=== PATIENT | female | born 1935 | race Two or more races ===

== ENCOUNTER 2020-06-28 16:34 | Inpatient (IN) | payer MEDICARE, MEDICAID ==
[~2020-06-28] VITALS: Ht 160 cm; Wt 66.3 kg
[2020-06-28] MEDS ORDERED: SODIUM CHLORIDE 0.9% 1,000 ML IVB ONE (17:49)
[2020-06-28] MEDS ORDERED: ONDANSETRON HCL 4 MG/2 ML VIAL IV ONE (18:00)
[2020-06-28 18:05] LABS: Urine Bacteria MANY /hpf (None Seen); Urine Blood Negative /uL (Negative); Urine Hyaline Cast FEW /lpf (0 - 2); Urine Mucus FEW (None Seen); Urine Specific Gravity 1.028 (1.001-1.035); Urine WBC 14 /hpf (0 - 5)
[2020-06-28 18:06] LABS: Alanine Aminotransferase 22 U/L (13-56); Albumin 3.2 g/dL (3.4-5.0); Anion Gap 4 (5-15); Aspartate Aminotransferase 20 U/L (15-37); BUN/Creatinine Ratio 32.8; Blood Urea Nitrogen 21 mg/dL (7-18); Calcium 9.6 mg/dL (8.5-10.1); Carbon Dioxide 31 mmol/L (21-32); Chloride 99 mmol/L (98-107); GFR African American 113 mL/min; GFR Non-African American 94 mL/min; Glucose 120 mg/dL (74-106); Potassium 4.6 mmol/L (3.5-5.1); Sodium 134 mmol/L (136-145)
[2020-06-28 18:11] LABS: Alkaline Phosphatase 84 U/L (45-117); Bilirubin, Total 0.8 mg/dL (0.2-1.0); Total Protein 7.1 g/dL (6.4-8.2)
[2020-06-28 18:24] LABS: Magnesium 1.2 mg/dL (1.6-2.6)
[2020-06-28 18:25] LABS: Basophils # (auto) 0 10 ^3/uL (0-0.2); Basophils % (auto) 0.3 % (0.0-2.0); Eosinophils # (auto) 0.3 10 ^3/uL (0-0.8); Eosinophils % (auto) 1.8 % (0.0-7.0); Hematocrit 42.9 % (36.0-46.0); Hemoglobin 13.8 g/dL (12.2-16.2); Lymphocytes # (auto) 2.4 10 ^3/uL (0.4-5.4); Lymphocytes % (auto) 15.2 % (10.0-50.0); Mean Corpuscular Hemoglobin 28.5 pg (28.0-32.0); Mean Corpuscular Hgb Conc. 32.2 g/dL (32.0-36.0); Mean Corpuscular Volume 88.4 fL (80.0-100.0); Monocytes # (auto) 1.4 10 ^3/uL (0-1.3); Monocytes % (auto) 8.7 % (0.0-12.0); Neutrophils # (auto) 11.8 10 ^3/uL (1.6-8.6); Platelet Count (auto) 260 10^3/uL (140-450); Red Blood Cells 4.85 10^6/uL (4.0-5.20); Red Cell Distribution Width 13.5 % (11.8-14.3)
[2020-06-28 18:36] LABS: INR 1.13 (0.9-1.15); Partial Thromboplastin Time 26.9 sec (23.0-31.2)
[2020-06-28] MEDS ORDERED: cefTRIAXone 1GM/50ML D5W 50 ML IV ONE (19:00)
[2020-06-28] MEDS: MAGNESIUM SULFATE 1GM/100ML 100 ML IV SCH ×2 (19:49→21:05)
[2020-06-28] MEDS ORDERED: ONDANSETRON HCL 4 MG/2 ML VIAL IV PRN (20:45)
[2020-06-28] MEDS ORDERED: MORPHINE SULF INJ 2 MG/ML SYRINGE 1ML IV PRN (20:45)
[2020-06-28] MEDS ORDERED: DOCUSATE SOD 100 MG CAP PO PRN (20:45)
[2020-06-28] MEDS: ACETAMINOPHEN 325 MG TAB PO PRN (21:47)
[2020-06-28] MEDS: SODIUM CHLORIDE 0.9% 1,000 ML IV SCH (22:28)
--- NOTE | 2020-06-28 23:31 | NUR ---
PATIENT BELONGINGS Patient reporting that she had her personal walker down in ER with her. It is currently not at bedside and not reported on the personal belonging form. Called ER and they said that patient did not have walker. Patient also reports missing pants and shirt. Not seen at bedside. These items are on personal belonging form. Called ER. They said they will let the RN know.
--- NOTE | 2020-06-28 23:31 | NUR ---
MS ADMIT Patient arrived to unit at this time. NO s/s of distress and patient reports no pain. Patient's respirations are even and unlabored. Educated patient on POC and to use call light when in need of any assistance. Patient was oriented to unit (call light/tv/remote/ policies/phone). Patient verbalized understanding. Bed is in lowest/locked position with side rails up X's 2 and call light is within reach of patient. Will continue care Patient is NPO and aware.
[2020-06-29] VITALS (9 sets, daily range): BP systolic 131–163; BP diastolic 60–87
--- NOTE | 2020-06-29 06:00 | NUR ---
PERSONAL BELONGINGS Patient's granddaughter called and said that she did take home patient's walker.
[2020-06-29 06:50] LABS: Basophils # (auto) 0 10 ^3/uL (0-0.2); Basophils % (auto) 0.4 % (0.0-2.0); Eosinophils # (auto) 0.2 10 ^3/uL (0-0.8); Eosinophils % (auto) 3.5 % (0.0-7.0); Hematocrit 37.8 % (36.0-46.0); Hemoglobin 12.3 g/dL (12.2-16.2); Lymphocytes # (auto) 1.3 10 ^3/uL (0.4-5.4); Lymphocytes % (auto) 19.1 % (10.0-50.0); Mean Corpuscular Hgb Conc. 32.6 g/dL (32.0-36.0); Mean Corpuscular Volume 88.9 fL (80.0-100.0); Monocytes # (auto) 0.6 10 ^3/uL (0-1.3); Monocytes % (auto) 9.3 % (0.0-12.0); Neutrophils # (auto) 4.6 10 ^3/uL (1.6-8.6); Neutrophils % (auto) 67.7 % (37.0-80.0); Platelet Count (auto) 218 10^3/uL (140-450); Red Blood Cells 4.25 10^6/uL (4.0-5.20); Red Cell Distribution Width 13.3 % (11.8-14.3); White Blood Cell 6.9 10^3/uL (4.4-10.8)
[2020-06-29 07:07] LABS: Cholesterol 60 mg/dL (< 200)
[2020-06-29 07:08] LABS: Calcium 8.4 mg/dL (8.5-10.1); Potassium 4.1 mmol/L (3.5-5.1)
[2020-06-29 07:09] LABS: HDL Cholesterol 25 mg/dL (40-59); LDL Cholesterol 30 mg/dL (< 100); Triglycerides 85 mg/dL (< 150)
[2020-06-29 07:11] LABS: BUN/Creatinine Ratio 22.6
--- NOTE | 2020-06-29 08:30 | NUR ---
Received pt resting in bed, call light within reach, pt denies any abdominal pain at this time, pt educated to use call light for help, commode at bed side.
[2020-06-29] MEDS: cefTRIAXone 1GM/50ML D5W 50 ML IV SCH (09:53)
--- NOTE | 2020-06-29 10:50 | NUR ---
Dr. Stockton at bed side to see pt, doctor discussed the plan of care with pt.
--- NOTE | 2020-06-29 13:30 | NUR ---
Pt given a cup to collect a stool sample.
[2020-06-29] MEDS: SODIUM CHLORIDE 0.9% 1,000 ML IV SCH (13:57)
--- NOTE | 2020-06-29 14:08 | NUR ---
Nutrition Assessment Est energy needs [id number] kcal (20-25 kcal/kg BW 67.9kg) Est protein needs 54-68g (0.8-1g/kg BW 67.9kg) Will reassess prn. Addendum: 06/29/20 at [address] Amended: Links added.
[2020-06-30 05:00] VITALS: BP 138/68
[2020-06-30] MEDS: SODIUM CHLORIDE 0.9% 1,000 ML IV SCH (05:55)
--- NOTE | 2020-06-30 06:00 | NUR ---
Unable to obtain stool sample. Patient had no bowel movement. Will continue to monitor patient Q1 and PRN.
[2020-06-30 06:42] LABS: Albumin 2.7 g/dL (3.4-5.0); Calcium 8.1 mg/dL (8.5-10.1); Potassium 3.9 mmol/L (3.5-5.1)
[2020-06-30 06:46] LABS: BUN/Creatinine Ratio 14.9; Bilirubin, Total 0.5 mg/dL (0.2-1.0)
[2020-06-30 06:47] LABS: Basophils # (auto) 0 10 ^3/uL (0-0.2); Basophils % (auto) 0.4 % (0.0-2.0); Eosinophils # (auto) 0.2 10 ^3/uL (0-0.8); Eosinophils % (auto) 3.7 % (0.0-7.0); Hematocrit 38.4 % (36.0-46.0); Hemoglobin 12.8 g/dL (12.2-16.2); Lymphocytes # (auto) 1.4 10 ^3/uL (0.4-5.4); Lymphocytes % (auto) 22.3 % (10.0-50.0); Mean Corpuscular Hemoglobin 29.4 pg (28.0-32.0); Mean Corpuscular Hgb Conc. 33.3 g/dL (32.0-36.0); Mean Corpuscular Volume 88.2 fL (80.0-100.0); Monocytes # (auto) 0.5 10 ^3/uL (0-1.3); Monocytes % (auto) 8.5 % (0.0-12.0); Neutrophils # (auto) 3.9 10 ^3/uL (1.6-8.6); Neutrophils % (auto) 65.1 % (37.0-80.0); Platelet Count (auto) 217 10^3/uL (140-450); Red Blood Cells 4.35 10^6/uL (4.0-5.20); White Blood Cell 6.1 10^3/uL (4.4-10.8)
--- NOTE | 2020-06-30 07:21 | NUR ---
End of Shift Note Endorsed care to dayshift RN. At this time patient has no s/s of distress or SOB.
--- NOTE | 2020-06-30 07:50 | NUR ---
Opening Note Received report from hydrometeorologist RN. Patient is resting in bed, no signs or symptoms of distress noted at this time. Patient is on room air, respirations even and unlabored. Bed in low and locked position, call light within reach. Will continue to monitor Q1 hour and PRN.
[2020-06-30] MEDS: cefTRIAXone 1GM/50ML D5W 50 ML IV SCH (09:16)
--- NOTE | 2020-06-30 12:49 | NUR ---
Dr. Stockton at bedside MD at bedside discussing plan of care with patient and this RN. New order received to discontinue IV fluids. Will implement orders. Will continue to monitor Q1 hour and PRN.
--- NOTE | 2020-06-30 19:03 | NUR ---
Closing Note Report given to casino shift manager RN. No signs or symptoms of distress noted at this time.
[2020-06-30 22:00] VITALS: BP 138/78
[2020-07-01 05:51] VITALS: BP 145/85
[2020-07-01 05:57] LABS: Basophils # (auto) 0 10 ^3/uL (0-0.2); Basophils % (auto) 0.4 % (0.0-2.0); Eosinophils # (auto) 0.2 10 ^3/uL (0-0.8); Eosinophils % (auto) 2.7 % (0.0-7.0); Hematocrit 41.8 % (36.0-46.0); Hemoglobin 13.6 g/dL (12.2-16.2); Lymphocytes % (auto) 25.9 % (10.0-50.0); Mean Corpuscular Hemoglobin 29.1 pg (28.0-32.0); Mean Corpuscular Hgb Conc. 32.6 g/dL (32.0-36.0); Mean Corpuscular Volume 89.1 fL (80.0-100.0); Monocytes # (auto) 0.5 10 ^3/uL (0-1.3); Nucleated Red Blood Cells % 0.2 %; Platelet Count (auto) 255 10^3/uL (140-450); Red Blood Cells 4.69 10^6/uL (4.0-5.20); Red Cell Distribution Width 13.6 % (11.8-14.3); White Blood Cell 7.8 10^3/uL (4.4-10.8)
[2020-07-01 06:12] LABS: BUN/Creatinine Ratio 15.6; Calcium 8.8 mg/dL (8.5-10.1)
--- NOTE | 2020-07-01 07:20 | NUR ---
End of Shift Note Endorsed care to dayshift RN. At this time patient has no s/s of distress or SOB.
--- NOTE | 2020-07-01 07:40 | NUR ---
Opening shift note Assumed care of patient from NOC RN. Patient is AOX4 no s/s of distress or SOB noted. Bed is in lowest locked position, side rails up x2, and call light is within reach. Updated patient on plan of care and patient verbalized understanding. Will continue to monitor q1hr and PRN.
[2020-07-01 09:00] VITALS: BP 123/72
[2020-07-01] MEDS: ACETAMINOPHEN 325 MG TAB PO PRN (10:27)
[2020-07-01] MEDS: cefTRIAXone 1GM/50ML D5W 50 ML IV SCH (10:27)
--- NOTE | 2020-07-01 11:05 | NUR ---
Physician rounding Dr. Stockton at bedside. Updated patient on plan of care and patient verbalized understanding. New order received, will follow through.
[2020-07-01] MEDS ORDERED: CEPH-37 PO (11:07)
[2020-07-01] MEDS ORDERED: DOCU100C8 PO (11:07)
[2020-07-01 13:00] VITALS: BP 131/73
[2020-07-01 15:59] VITALS: BP 123/72
--- NOTE | 2020-07-01 16:39 | NUR ---
Discharge note Discharge instructions given as ordered. Encourage to follow up with PMD as instructed. All questions and concerns addressed. Patient verbalized understanding. IV removed with catheter intact, pressure dressing applied. Patient taken to vehicle via wheelchair with all personal belongings, accompanied by staff. No distress noted at time of departure.
== END 2020-07-01 16:39 | disposition home or self-care (01) | DRG 690 ==
LOC: ER 16:34 → OVERFLOW 16:35 → WEST WING 23:24
PROVIDERS: ADMIT Hospitalist; ATTEND Internal Medicine Pulmonary Disease
DX: N39.0 Urinary tract infection, site not specified (principal); E83.42 Hypomagnesemia; K59.00 Constipation, unspecified; I10 Essential (primary) hypertension; Z90.49 Acquired absence of other specified parts of digestive tract
CPT/HCPCS: 36415; 71045; 74176; 80048; 80053; 80061; 81001; 83036; 83690; 83735; 84484; 85025; 85610; 85730; 93005; 96365; 96368; 96375; G0378; J0696; J2405

== ENCOUNTER → 2023-04-19 | Outpatient (CLI) | payer MEDICARE, MEDICAID ==
[~2023-04-19] MED LIST: CEPH-37 PO; DOCU-265 PO
== END | disposition home or self-care (01) ==
LOC: Rad HDHVI 13:03
PROVIDERS: ATTEND Internal Medicine Cardiovascular Disease
DX: I08.3 Combined rheumatic disorders of mitral, aortic and tricuspid valves (principal); I10 Essential (primary) hypertension
CPT/HCPCS: 93306